=== PATIENT | male | born 1975 | race Caucasian/White ===

== ENCOUNTER 2023-11-24 17:01 | Emergency (ER) | payer OTHER, SELFPAY ==
--- NOTE | 2023-11-24 17:09 | PC.NURSE ---
for the visual acuity test, the pt normally wears glasses but did not have them on today. both eyes is 20/30, right eye is 20/50, and the left eye is 20/40
--- NOTE | 2023-11-24 17:55 | ED.EYEPROB ---
HPI - Eye Problem General Chief complaint: Eye Problems Stated complaint: left eye complaint Time Seen by Provider: 11/24/23 17:32 History of Present Illness HPI Narrative: 48-year-old male presents to the emergency department for concerns for foreign body in his left eye. Patient states he was wearing safety glasses and was working underneath his truck with a metal baler when he felt something hit his eye. He is concerned there is a piece of metal in his eye. He normally wears glasses but is not currently wearing them. His does not wear contacts.. Denies vision changes or tearing. Review of Systems Review of Systems: CONSTITUTIONAL: Denies fever, chills, or sweats. EYES: See HPI ENT: Denies rhinorrhea, congestion, sore throat, or otalgia. CARDIOVASCULAR: Denies chest pain, palpitations, or edema. RESPIRATORY: Denies cough or dyspnea. GASTROINTESTINAL: Denies abdominal pain, nausea, vomiting, or diarrhea. GENITOURINARY: Denies dysuria or hematuria. SKIN: Denies rash or itching. MUSCULOSKELETAL: Denies back pain, joint pain, or myalgia. NEUROLOGIC: Denies headache, numbness, or weakness. PSYCHIATRIC: Denies anxiety or depression. Exam Narrative: GENERAL: Well-appearing, well-nourished, and in no acute distress. HEAD: Normocephalic, atraumatic. EYES: PERRLA and EOMI. Very small piece of metal to the left aspect of the left cornea, approximately 3 o'clock position. No foreign bodies to remainder of eye including underneath the upper and lower lids. Mental status scratch removed with cotton Q-tip without complications. Fluorescein staining shows abrasion where the metal scrap was. No Jose sign. No rust ring visualized. ENT: Nares clear, no rhinorrhea or epistaxis. Mucous membranes moist. NECK: Supple. CHEST: Clear to auscultation. No respiratory distress. HEART: Regular rate and rhythm. No murmur heard. Normal peripheral pulses. EXTREMITIES: Normal range of motion. No edema. SKIN: Warm, dry, no rash. NEURO: No focal deficits. Alert and oriented x3 Course Vital Signs Vital signs: Vital Signs Temperature 98.0 F 11/24/23 18:23 Pulse Rate 56 L 11/24/23 18:23 Respiratory Rate 16 11/24/23 18:23 Blood Pressure 124/73 11/24/23 18:23 Pulse Oximetry 99 11/24/23 18:23 Temperature 98.0 F 11/24/23 18:23 Pulse Rate 56 L 11/24/23 18:23 Respiratory Rate 16 11/24/23 18:23 Blood Pressure 124/73 11/24/23 18:23 Pulse Oximetry 99 11/24/23 18:23 Procedures FB Removal Eye Foreign Body #1: Foreign Body Removal Date: 11/24/23 Foreign Body Removal Time: 17:58 Time Out performed: Yes Location: eye (L) Topical anesthetic used: tetracaine Foreign body: metal Evidence of corneal penetration: No Technique: cotton tip swab Procedure performed under: direct visualization with magnification Post-procedure medication: ophthalmic antibiotic Patient tolerated procedure: well MDM - Eye Problem MDM Narrative Medical decision making narrative: 48-year-old male presents to the emergency department with concerns for a foreign body in his left eye. Triage vitals stable. Exam is significant for a small foreign body around the 3 o'clock position to the left cornea. The foreign body was removed with a cotton swab tip without complication. Fluorescein staining reveals no Jose sign or evidence of an open globe, no other foreign bodies visualized. There is a small abrasion where the foreign body lied. Will start him on erythromycin ointment. Strongly encouraged close follow-up with Ophthalmology. Referral provided. Strict ED return precautions discussed. He is agreeable with the plan verbalized understanding. Discharged in stable condition. Discharge Plan Discharge Clinical Impression: Corneal abrasion Qualifiers: Encounter type: initial encounter Laterality: left Qualified Code(s): S05.02XA - Injury of conjunctiva and corneal abrasi
[2023-11-24 18:23] VITALS: BP 124/73; PULSE 56; RESP 16; TEMP 36.7; O2SAT 99
[2023-11-24 18:42] VITALS: BP 138/84; PULSE 76; RESP 16; TEMP 36.6; O2SAT 98
== END 2023-11-24 18:45 | disposition home or self-care (01) ==
PROVIDERS: Emergency Provider Physician Assistant; PCP Physician Assistant
DX: T15.02XA Foreign body in cornea, left eye, initial encounter (principal); W44.8XXA Other foreign body entering into or through a natural orifice, initial encounter
CPT/HCPCS: 65220; 99283

== ENCOUNTER 2025-04-06 09:17 | Emergency (ER) | payer OTHER, MEDICAID, SELFPAY ==
--- OUTSIDE RECORDS SUMMARY | 2009-01-23 16:20 | XMS_ITS | Continuity of Care Document ---
Author Organization [facility] Address [address] [place] [address] Phone Care Team Providers Care Money Manager Name Role Phone Unavailable Unavailable Unavailable Procedures Procedure Date Dental bitewings two films Periapical first film Comprehensve oral evaluation Advance Directives Directive Yes / No Effective Date File Name No Information Encounters Encounter Description Practice Location Reason(s) For Visit Diagnoses Date Provider Providers Copied on Encounter [facility] , [address], [place], [place], [id number], tel:[phone] Historic Immunization Location No Information No Information [facility] , [address], [place], [place], [id number], tel:[phone] [facility] DENTAL EXAMINATION 9 No Information Family History Family Member Type Diagnosis Age At Onset No Information Immunizations Vaccine Date Status Comments HEPATITIS B .5cc AGE 22 administered Sour ce: New Immunization Record Payers Payer name Insurance type Covered republican ID Authoriza tion(s) No Information Social History Type Description Quantity Date Captured Comments Sex Male Smoking Status No Information Chief Complaint And Reason For Visit No Information Reason For Referral Reason For Referral No Information History Of Present Illness Encounter Date Complaint History Of Prese nt Illness No Information Functional Status Date Functional Assessmen t No Information Instructions Date Instruction Additional Infor mation No Information Assessments Type Assessment Date No Information Patient Care Teams Name Effective Dates (start - stop) Status Members No Information
--- NOTE | ~2025-04-06 | CT_ITS ---
EXAMINATION: CT lumbar spine wo con DATE: 04/06/2025 9:54 CDT INDICATION: Low back pain into left lower extremity TECHNIQUE: Computed tomography (CT) of the lumbar spine was performed without intravenous contrast. The dose-length product was 285.93 mGy-cm. COMPARISON: None FINDINGS: Lumbar vertebral body heights and alignment are within normal limits. No compression fracture in the lumbar spine. Bone mineralization is within normal limits. Evaluation of the spinal canal contents and bilateral neural foramen is limited due to CT technique. At the L4-L5 level, there is a moderate to large left paracentral disc protrusion causing moderate narrowing of the spinal canal, severe narrowing of the left lateral recess and moderate narrowing of the left neural foramen. At the L5-S1 level, there is a small to moderate-sized right paracentral disc protrusion causing moderate narrowing of the right lateral recess and moderate narrowing of the right neural foramen. Mild narrowing of the spinal canal. IMPRESSION: 1. At the L4-L5 level, there is a moderate to large left paracentral disc protrusion causing moderate narrowing of the spinal canal, severe narrowing of the left lateral recess and moderate narrowing of the left neural foramen. 2.At the L5-S1 level, there is a small to moderate-sized right paracentral disc protrusion causing moderate narrowing of the right lateral recess and moderate narrowing of the right neural foramen. Mild narrowing of the spinal canal. Reviewed, dictated and finalized at location Q. IMPRESSION: 1. At the L4-L5 level, there is a moderate to large left paracentral disc protr usion causing moderate narrowing of the spinal canal, severe narrowing of the l eft lateral recess and moderate narrowing of the left neural foramen. 2.At the L5-S1 level, there is a small to moderate-sized right paracentral disc protrusion causing moderate narrowing of the right lateral recess and moderate narrowing of the right neural foramen. Mild narrowing of the spinal canal.
[2025-04-06 09:26] VITALS: BP 156/88; PULSE 68; RESP 19; TEMP 37; O2SAT 99
[2025-04-06 09:30] VITALS: BP 144/88; PULSE 60; RESP 18; TEMP 36.6; O2SAT 100
--- NOTE | 2025-04-06 09:32 | ED_ITS ---
HPI - Back Pain/Injury General Chief Complaint: Back Pain/Injury Stated Complaint: back pain that goes down left leg Time Seen by Provider: 04/06/25 09:22 Source: patient Mode of arrival: ambulatory Limitations: no limitations History of Present Illness HPI Narrative: Patient is a 49 y/o male who presents to the ED with c/o L lower back pain. Patient reports history of frequent flare ups of left lower back pain, radiating into his left lower extremity. States he will often rest and see his chiropractor for an adjustment and the pain will improve. This episode of pain has been ongoing for 12 days. He does note that he has been working hard on his son's car throughout this episode and has not been resting as much as he usually would with the pain. He has seen his chiropractor twice but denies improvement. Reports pain worse with movement. Radiates down his left lower extremity. Reports intermittent tingling in his left lower extremity. Denies numbness, saddle anesthesia, bowel or bladder incontinence. Related Data Allergies Allergy/AdvReac Type Severity Reaction Status Date / Time No Known Allergies Allergy Verified 04/06/25 09:49 Review of Systems Review of Systems: All systems reviewed & are unremarkable except as noted in HPI. All systems reviewed & are unremarkable except as noted in HPI and below Exam Narrative: GENERAL: Well appearing, well-nourished, non-toxic, in no acute distress. HEAD: Normocephalic, atraumatic. RESPIRATORY: Airway patent, respirations nonlabored. CARDIOVASCULAR: Regular rate and rhythm without murmurs, rubs, or gallops. Pedal pulses intact. MUSCULOSKELETAL: Moves all extremities. No gross deformities. Diffuse tenderness throughout lumbar spine, left-sided paraspinal musculature. Positive straight leg raise on left. Sensation intact throughout LLE. SKIN: Warm, dry, normal color. Yellow staining and clubbing to fingertips tricia. NEURO: A&O X3. Speech clear. Steady gait. No ataxic movements. PSYCHIATRIC: Appropriate mood and affect. Normal interaction. Course Vital Signs Vital signs: Vital Signs Temperature 98.6 F 04/06/25 09:26 Pulse Rate 68 04/06/25 09:26 Respiratory Rate 19 04/06/25 09:26 Blood Pressure 156/88 H 04/06/25 09:26 Pulse Oximetry 99 04/06/25 09:26 Oxygen Delivery Room Air 04/06/25 09:26 Temperature 98 F 04/06/25 09:30 Pulse Rate 60 04/06/25 09:30 Respiratory Rate 18 04/06/25 09:30 Blood Pressure 144/88 H 04/06/25 09:30 Pulse Oximetry 100 04/06/25 09:30 Oxygen Delivery Room Air 04/06/25 09:30 MDM - Back Pain/Injury MDM Narrative Medical decision making narrative: Patient presented to ED with 12 day history of left lower back pain into left lower extremity. History of similar episodes. Vital signs stable upon arrival. Patient?s pain is positional and localized mostly to paraspinal muscles without signs of cord compression or cauda equina. Normal neurologic exams. No red flag symptoms. Reporting tingling intermittently in left lower extremity, but denies numbness, saddle anesthesia, bowel or bladder incontinence. No fever noted and no significant risk factors for osteomyelitis or spinal epidural abscess. No symptoms or signs to suggest pain is referred from abdominal or source. CT scan of the lumbar spine was obtained and showing disc protrusion changes at L4- L5 with some narrowing of lateral recesses and on spinal canal. Consistent with area of pain today. Discussed imaging findings with patient. He was given lidocaine patch, Robaxin, oxycodone in the ED. On re-evaluation, feeling slightly improved. Will also give solu medrol. Discussed discharge home with continued pain management, neurosurgery follow-up as outpatient versus admission for pain control. Patient feels comfortable going home and following up as outpatient. Will prescribe muscle relaxers, short course of pain medication, Medrol Dosepak for home. Discussed avoiding complete bed rest, gentle movements, strict return precautions. Patient voiced understanding, is in agreement with plan. Family in agreement. Discharged in stable condition. Medical Records Attestation: I reviewed the patient's medical records. Imaging Data Attestation: I personally reviewed and interpreted this imaging study as follows: Radiologist's impression: ITS Impressions Lumbar Spine CT 04/06/25 09:52 IMPRESSION: 1. At the L4-L5 level, there is a moderate to large left paracentral disc protrusion causing moderate narrowing of the spinal canal, severe narrowing of the left lateral recess and moderate narrowing of the left neural foramen. 2.At the L5-S1 level, there is a small to moderate-sized right paracentral disc protrusion causing moderate narrowing of the right lateral recess and moderate narrowing of the right neural foramen. Mild narrowing of the spinal canal. Discharge Plan Discharge Clinical Impression: Lumbar radiculopathy, Bulging of lumbar intervertebral disc Strain of lumbar region Qualifiers: Encounter type: initial encounter Qualified Code(s): S39.012A - Strain of muscle, fascia and tendon of lower back, initial encounter Patient Disposition: Home Condition: Stable Instructions: Antibiotic Form, Acute Low Back Pain (ED), Lumbar Radiculopathy (ED), Lower Back Exercises (ED) Additional Instructions: Take steroid pack as prescribed. Continue Tylenol and Ibuprofen around the clock as needed for pain. You can take 1000 mg of Tylenol and 600 mg of ibuprofen every 6 hours. Oxycodone as needed for more severe pain. You may use ice/heat, lidocaine patches to area of pain. Take muscle relaxers as needed and prescribed. Recommend taking these at night as they may cause sedation. Do not drive, operate heavy machinery, drink alcohol while on muscle relaxers as this may cause further sedation. Follow-up with your primary care doctor and neurosurgery for further evaluation. Call offices to make appointments. Return to the ED if you experience worsening or severe pain, fall or injury, persistent numbness in groin or legs, going to the bathroom without meaning to, difficulty urinating, unable to keep down food or drink, or any other symptoms of concern. Patient Language: Japanese Prescriptions: New methocarbamol 750 mg tablet 1,500 mg PO TID PRN (Reason: muscle spasm) Qty: 15 0RF lidocaine 5 % adhesive patch,medicated 1 patch topical DAILY Qty: 15 0RF Rx Instructions: leave on most painful area for up to 12 hrs methylprednisolone [Medrol (Harish)] 4 mg tablets,dose pack See Rx Instructions PO .COMPLEX Qty: 21 0RF Rx Instructions: orally per package directions oxycodone 5 mg tablet 5 mg PO Q6H PRN (Reason: pain) Qty: 10 0RF No Action erythromycin 5 mg/gram (0.5 %) ointment 0.5 inch EACH EYE QID 7 Days Qty: 3.5 0RF Follow-up/Referrals: Janna,AURA Goodson [Primary Care Provider, Family Practice] Zachary Puentes MD [Physician, Neurosurgery] Referral Note: NEUROSURGERY Time of Disposition: 11:35
[2025-04-06] MEDS: LIDOCAINE 5% PATCH 1 PATCH TRANSDERM (09:53)
[2025-04-06] MEDS: oxyCODONE HCL (*CRX) 5 MG TAB IR PO (09:54)
== END 2025-04-06 12:02 | disposition home or self-care (01) ==
PROVIDERS: Emergency Provider Physician Assistant; PCP Physician Assistant
DX: M51.16 Intervertebral disc disorders with radiculopathy, lumbar region (principal); S39.012A Strain of muscle, fascia and tendon of lower back, initial encounter; X58.XXXA Exposure to other specified factors, initial encounter
CPT/HCPCS: 72131; 96372; 99284; A9270